=== PATIENT | female | born 1975 | race Caucasian/White ===

== ENCOUNTER 2021-10-21 18:55 | Emergency (ER) | payer OTHER, MEDICAID, SELFPAY ==
[2021-10-21 19:12] VITALS: BP 138/77; PULSE 111; RESP 17; TEMP 36.7; O2SAT 97; BMI 41.5
[2021-10-21 23:59] VITALS: BP 131/71; PULSE 96; RESP 20; TEMP 36.6; O2SAT 98
--- NOTE | 2021-10-22 00:07 | ED_ITS ---
HPI - Head Injury General Chief complaint: Head Injury Stated complaint: concussed; hit head on cabinet Time Seen by Provider: 10/22/21 00:07 Source: patient Mode of arrival: Ambulatory History of Present Illness HPI Narrative: 46-year-old with a history of diabetes, depression anxiety, asthma presents complaining ?I am concussed?. She is significantly emotionally labile and very tangential. She states that on or about October 14 she hit the left temporal side of her head on a car early in the day and then the occiput on a covered later in the day. Since then she complains of being clumsy, dropping everything, not being able to think her focus feeling like she is ?[place] in [place]?. She is complaining of mild headache difficulty with driving, walking, nausea. She complains of irregularities all over her head and body with mu ltiple scars and abnormalities related to rate trauma from a number of years ago. She becomes quite invested to the point of perseverating on ?a lot of internal injuries in rare diseases? and apparently has been diagnosed with lichen planus at the [facility] and they are trying to work with the lichen planus causing significant pelvic sclerosis and pain. Related Data Home Medications Medication Instructions Recorded Confirmed buspirone 30 mg tablet 30 mg PO BID 10/21/21 10/21/21 escitalopram oxalate 20 mg tablet 20 mg PO DAILY 10/21/21 10/21/21 fluticasone propionate 115 2 puff INHALATION DAILY 10/21/21 10/21/21 mcg-salmeterol 21 mcg/actuation HFA inhaler (Advair HFA) metformin 500 mg tablet,extended 500 mg PO BID 10/21/21 10/21/21 release 24 hr norethindrone acetate 5 mg tablet 5 mg PO DAILY 10/21/21 10/21/21 Allergies Allergy/AdvReac Type Severity Reaction Status Date / Time Sulfa (Sulfonamide Allergy Nausea Verified 10/21/21 19:17 Antibiotics) Review of Systems Review of Systems Narrative: Remainder of complete review of systems is otherwise unremarkable except for that included in the HPI. Patient History Medical History (Updated 10/22/21 @ 03:36 by Che Jose MD) Depression Diabetes Lichen planus Social History Smoking Status: Former smoker Smoking Status: Former smoker alcohol intake frequency: other Substance Use Type: marijuana Exam Initial Vital Signs Initial Vital Signs: Vital Signs Temperature 98.1 F 10/21/21 19:12 Pulse Rate 111 H 10/21/21 19:12 Respiratory Rate 17 10/21/21 19:12 Blood Pressure 138/77 10/21/21 19:12 Pulse Oximetry 97 10/21/21 19:12 General: Healthy appearing, emotionally labile HEENT: Moist mucous membranes, normal sclera with reactive pupils, she has no abrasions or contusions to her head. The areas of concern that she indicates do not have objective abnormalities appreciated Neck: No JVD, supple Respiratory: Lungs are clear to auscultation, no wheezing no rales no rhonchi. Full and symmetrical air movement Cardiac: Regular rate and rhythm no murmurs no bruits Abdomen: Soft, nontender, good bowel tones, no flank pain Skin: Warm and dry, no rashes Neurologic: Grossly neurologically intact with no obvious asymmetries or abno rmalities Extremities: No trauma, well perfused Psych: Labile, tangential but can be redirected Course Orders Ordered: ED Orders 10/22/21 00:17 CT head/brain wo con Stat Vital Signs Vital signs: Vital Signs - 8 hr 10/21/21 23:59 10/22/21 01:28 Temperature 98 F Pulse Rate 96 H 88 Respiratory Rate 20 19 Blood Pressure 131/71 124/88 Pulse Oximetry 98 98 MDM - Head Injury MDM Narrative Medical decision making narrative: 46-year-old woman describing 2 episodes of minor head injury approximately a week ago with postconcussion type symptoms. I have no access to prior medical records for comparison. CT scan of the head is unremarkable. Findings are reviewed with her. She remains quite labile with the litany of additional somatic complaints. I explained to her that I was not going to be able to fix her chronic concerns with an emergency department visit and strongly recommended that she follow-up with her primary care physician. I did recommend Zofran to help with some of the nausea that can be associated with concussion. She declined. She is safe for home discharge Discharge Plan Departure Patient Disposition: Home Clinical Impression: Concussion without loss of consciousness, Post concussion syndrome Instructions: DI for Postconcussion Syndrome Activity Restrictions/Additional Instructions: I wish that you were not having such difficult time after hitting your head last week. I have given you some printed information on postconcussion syndrome. Unfortunately the treatment for this is rest and time. I would strongly encourage you to schedule appointment with her primary care physician to review the rest of your symptoms to see what options your physician may have to suggest. Prescriptions: No Action buspirone 30 mg tablet 30 mg PO BID 0RF norethindrone acetate 5 mg tablet 5 mg PO DAILY 0RF metformin 500 mg tablet extended release 24 hr 500 mg PO BID 0RF escitalopram oxalate 20 mg tablet 20 mg PO DAILY 0RF Advair HFA 115-21 mcg/actuation HFA aerosol inhaler 2 puff INHALATION DAILY 0RF
--- NOTE | 2021-10-22 00:17 | DI.CT.S_ITS ---
PROCEDURE: CT HEAD/BRAIN WO CON INDICATIONS: concussion, confusion, head injury x2 on 10/14 TECHNIQUE: Noncontrast 4.5 mm thick angled axial sections acquired from the foramen magnum to the vertex, with coronal and sagittal reformats. For radiation dose reduction, the following was used: automated exposure control, adjustment of mA and/or kV according to patient size. COMPARISON: None. FINDINGS: Image quality: Excellent. CSF spaces: Basal cisterns are patent. No extra-axial fluid collections. Ventricles are normal in size and shape. Brain: No midline shift. No intracranial masses or hemorrhage. Miller-white matter interface is normal. Skull and face: Calvarium and visualized facial bones are intact, without suspicious lesions. Sinuses: Visualized sinuses and mastoids are clear. IMPRESSION: 1. No acute intracranial abnormalities. Dictated by: Valeria Daily M.D. on 10/22/2021 at 1:40 Approved by: Valeria Daily M.D. on 10/22/2021 at 1:41
[2021-10-22 01:28] VITALS: BP 124/88; PULSE 88; RESP 19; O2SAT 98
[2021-10-22 03:52] VITALS: BP 125/70; PULSE 89; RESP 19; O2SAT 98
== END 2021-10-22 00:16 | disposition home or self-care (01) ==
PROVIDERS: Emergency Provider Emergency Medicine
DX: S06.0X0A Concussion without loss of consciousness, initial encounter (principal); Z87.891 Personal history of nicotine dependence; W22.8XXA Striking against or struck by other objects, initial encounter
CPT/HCPCS: 70450; 99283; 99284